=== PATIENT | female | born 1955 | race African-American/Black ===

== ENCOUNTER 2018-08-22 03:16 | Inpatient (IN) | payer MEDICARE, MEDICAID ==
[~2018-08-22] VITALS: Ht 162.6 cm; Wt 43.8 kg
[2018-08-22] VITALS (23 sets, daily range): BP systolic 89–139; BP diastolic 39–78; BMI 18.1
[2018-08-22] MEDS ORDERED: NORVASC5 MG PO (03:24)
[2018-08-22] MEDS ORDERED: GABAPENTIN100 MG PO (03:24)
[2018-08-22] MEDS ORDERED: METHOTREXATE2.5 MG PO (03:24)
[2018-08-22] MEDS ORDERED: PREDNISONE5 MG PO (03:25)
[2018-08-22] MEDS ORDERED: HYDROCODON-ACE1 EA10 PO (03:25)
[2018-08-22] MEDS ORDERED: PROTONIX40 MG PO (03:25)
[2018-08-22] MEDS ORDERED: TRAZODONE HCL150 MG PO (03:26)
[2018-08-22] MEDS ORDERED: ZANAFLEX2 M1 PO (03:26)
[2018-08-22 04:27] LABS: CKMB 16.1 U/L (0.0-3.6); CREATINE KINASE 1087 UL (21-215); PRO BNP 4009 pg/mL (0-125)
[2018-08-22 04:29] LABS: TROPONIN-I 0.268 ng/mL (0.000-0.060)
--- NOTE | 2018-08-22 05:00 | NUR ---
RECEIVED PT FROM ER. PT ATTACHED TO MONITORS. MONITORS WORKING PROPERLY. PT IS INTUBATED AND SEDATED ON THE VENT. NO SIGNS OF ACUTE DISTRESS. WILL CONTINUE TO MONITOR.
--- NOTE | 2018-08-22 07:00 | NUR ---
RECIEVED BEDSIDE REPORT ON PATIENT, PATIENT SEDATED ON VENT, RESTING QUIETLY, VSS. VENT SETTINGS: TV 450; A/C 20; FIO2% - 40%, SPO2 - 96%, PEEP 5. ON PROPOFOL GTT INFUSING AT 50 MCG/KG/MIN (14.9 CC/HR). REYES CATH IN PLACE WITH 1100 IN CLEAR YELLOW URINE OUTPUT. PATIENT TURNED AND REPOSITIONED IN BED. HEAD TO TOE ASSESSMENT COMPLETED.
--- NOTE | 2018-08-22 08:23 | NUR ---
PER DR. ROSS, DIPROVAN GTT SHUT OFF TO WEAN FROM VENT AND POSSIBLE EXTUBATION.
--- NOTE | 2018-08-22 09:03 | NUR ---
PATIENT SEDATED RESTING QUIELTY, SEDATION VACATION ONGOING. TURNED AND REPOSITIONED IN BED.
--- NOTE | 2018-08-22 11:00 | NUR ---
REASSESSMENT COMPLETED. PATIENT RESTING QUIELTY, AROUSED BY VOICE, NOT FOLLOWING COMMANDS AT PRESENT. VSS. EASILY DRIFTS BACK TO SLEEP. SCDS PLACED AND MEDS GIVEN PER SEP. UOP 950 CC CLEAR YELLOW. WILL CONTINUE TO MONITOR. TURNED AND REPOSITIONED IN BED.
--- NOTE | 2018-08-22 13:05 | NUR ---
PATIENT RESTING QUIETLY, VSS. AROUSES TO VOICE AND STIMULATION, NOT FOLLOWING COMMANDS AND IMMEDIATELY DRIFTS BACK TO SLEEP. SEDATION CONTINUED TO BE HELD. TURNED AND REPOSITIONED IN BED.
--- NOTE | 2018-08-22 14:26 | NUR ---
PATIENT RESTING QUIETLY, WITH EYES CLOSED, EASILY AROUSED BY VOICE, VSS. WILL FOCUS BRIEFLY AND THEN FALL BACK ASLEEP. TURNED AND REPOSITIONED IN BED.
--- NOTE | 2018-08-22 14:57 | NUR ---
SPOKE TO DR. ROSS REGARDING PATIENTS UOP [id number]. NO ORDERS RECEIVED.
--- NOTE | 2018-08-22 15:28 | NUR ---
REASSESSMENT COMPLETED, VSS. PATIENT TURNED AND REPOSITIONED IN BED. SPOKE TO DR. ROSS CONCERNING HIGH UOP, BMP, PHOS AND MAG ORDERED FOR 1600. WILL CONTINUE TO MONITOR.
--- NOTE | 2018-08-22 16:57 | NUR ---
PATIENT RESTING QUIETLY, VSS. TURNED AND REPOSITIONED IN BED.
--- NOTE | 2018-08-22 17:01 | NUR ---
LAB AT ROOM TO DRAW BMP, PHOS AND MAG.
[2018-08-22 17:49] LABS: ANION GAP 8.9 mmol/L (8-16); CREATININE - SERUM 1.4 mg/dL (0.6-1.3); MAGNESIUM - SERUM 1.9 mg/dL (1.8-2.4); PHOSPHOROUS 3.8 mg/dL (2.5-4.9); POTASSIUM - SERUM 3.6 mmol/L (3.5-5.1)
[2018-08-22 17:54] LABS: CARBON DIOXIDE 40.7 mmol/L (21.0-32.0)
--- NOTE | 2018-08-22 17:58 | NUR ---
DR ROSS NOTIFIED OF CRITICAL CO2 OF 40.7. CO2 LEVEL CONFIRMED, NO ORDERS RECIEVED.
--- NOTE | 2018-08-22 19:14 | NUR ---
REPORT RECEIVED, CARE ASSUMED. INITIAL ASSESSMENT COMPLETED, SEE FLOWSHEET. NO SIGNS OF ACUTE DISTRESS. WILL CONTINUE TO MONITOR.
--- NOTE | 2018-08-22 21:14 | NUR ---
PT IS RESTING IN BED INTUBATED AND ON THE VENT. PT WILL AWAKEN AND FOLLOW BASIC COMMANDS. NO SIGNS OF ACUTE CHANGES. NO SIGNS OF ACUTE DISTRESS. WILL CONTINUE TO MONITOR.
--- NOTE | 2018-08-22 23:15 | NUR ---
REASSESSMENT COMPLETED, SEE FLOWSHEET. PT IS RESTING IN BED ON THE VENT. NO ACUTE CHANGES NOTED. NO SIGNS OF ACUTE DISTRESS. WILL CONTINUE TO MONITOR.
[2018-08-23] VITALS (23 sets, daily range): BP systolic 95–161; BP diastolic 52–78
--- NOTE | 2018-08-23 01:15 | NUR ---
PT IS IN BED INTUBATED. PT IS CALM AT THIS TIME. NO SIGNS OF ACUTE DISTRESS. WILL CONTINUE TO MONITOR.
--- NOTE | 2018-08-23 03:15 | NUR ---
REASSESSMENT COMPLETED, SEE FLOWSHEET. NO ACUTE CHANGES NOTED. NO SIGNS OF ACUTE DISTRESS. WILL CONTINUE TO MONITOR.
[2018-08-23 04:12] LABS: HEMATOCRIT 35.6 % (36.0-48.0); HEMOGLOBIN 10.8 g/dL (12-16); MCH 23.2 pg (26.0-34.0); MCHC 30.3 g/dL (31.0-37.0); MCV 76.6 fL (80.0-100.0); MEAN PLATELET VOLUME 10.5 fL (7.4-10.4); PLATELET COUNT 180 10x3/uL (130-400); RBC 4.65 10x6/uL (4.00-5.40); WBC 11.9 10x3/uL (4.8-10.8)
[2018-08-23 04:29] LABS: ALBUMIN 2.8 g/dL (3.4-5.0); BILIRUBIN - TOTAL 1.62 mg/dL (0.2-1.3); CALCIUM 7.8 mg/dL (8.5-10.1); CREATININE - SERUM 1.1 mg/dL (0.6-1.3); PROTEIN - SERUM 6.4 g/dL (6.4-8.2)
[2018-08-23 04:30] LABS: POTASSIUM - SERUM 2.7 mmol/L (3.5-5.1)
[2018-08-23 04:31] LABS: ANION GAP 9.1 mmol/L (8-16); CARBON DIOXIDE 43.6 mmol/L (21.0-32.0)
[2018-08-23 04:39] LABS: LYMPHOCYTES 5 % (15-50); MONOCYTES 5 % (2-11); NEUTROPHILS 88 % (40-80); PLATELET ESTIMATE NORMAL
--- NOTE | 2018-08-23 05:15 | NUR ---
PT IS IN BED WITH EYES CLOSED INTUBATED ON THE VENT. NO SIGNS OF ACUTE DISTRESS. WILL CONTINUE TO MONITOR.
--- NOTE | 2018-08-23 09:39 | NUR ---
CPAP TRIALS. DR ROSS HERE ON ROUNDS THIS AM.
--- NOTE | 2018-08-23 12:01 | NUR ---
CPAP TRIALS PER RT. PT DID BECOME APNIC. OGT PLACED AND REC'D ORDERS FOR TF. PLACEMENT VERIFIED VIA ASCULTATION. TF BEGAN. IV LEAKINGL WRIST. PIV PLACED IN BUE.
--- NOTE | 2018-08-23 17:31 | NUR ---
PT RESTING QUIETLY, AWAKENS EASILY. VSS. TURNED AND MOUTH CARE COMPLETE.
--- NOTE | 2018-08-23 19:04 | NUR ---
REPORT RECEIVED, CARE ASSUMED. INITIAL ASSESSMENT COMPLETED, SEE FLOWSHEET. PT IS RESTING IN BED INTUBATED AND ON THE VENT. PT AWAKENS EASILY AND WILL FOLLOW BASIC COMMANDS. PT SHOWS NO SIGNS OF ACUTE DISTRESS. WILL CONTINUE TO MONITOR.
--- NOTE | 2018-08-23 21:04 | NUR ---
PT IS RESTING IN BED. REPOSITIONED FOR COMFORT. NO SIGNS OF ACUTE DISTRESS. WILL CONTINUE TO MONITOR.
--- NOTE | 2018-08-23 23:04 | NUR ---
REASSESSMENT COMPLETED, SEE FLOWSHEET. NO SIGNS OF ACUTE DISTRESS. WILL CONTINUE TO MONITOR.
[2018-08-24] VITALS (24 sets, daily range): BP systolic 88–159; BP diastolic 51–78; Ht 162.6 cm; Wt 43.8 kg
--- NOTE | 2018-08-24 01:04 | NUR ---
PT IS RESTING IN BED ON THE VENT. NO ACUTE CHANGES NOTED. NO SIGNS OF ACUTE DISTRESS. WILL CONTINUE TO MONITOR.
--- NOTE | 2018-08-24 03:05 | NUR ---
REASSESSMENT COMPLETED, SEE FLOWSHEET. NO ACUTE CHANGES NOTED. PT WAS INCONTINENT OF A SMALL LIQUID BM. PADS CHANGES, PT CLEANED. REYES CARE PERFORMED. NO SIGNS OF ACUTE DISTRESS. WILL CONTINUE TO MONITOR.
[2018-08-24 04:16] LABS: BASOPHILS 0.4 % (0-2); EOSINOPHILS 0.1 % (0-7); HEMATOCRIT 37.5 % (36.0-48.0); HEMOGLOBIN 11.2 g/dL (12-16); IMMATURE GRANULOCYTES 0.4 % (0-5); LYMPHOCYTES 7.1 % (15-50); MCHC 29.9 g/dL (31.0-37.0); MCV 77.2 fL (80.0-100.0); MEAN PLATELET VOLUME 10.4 fL (7.4-10.4); MONOCYTES 9.2 % (2-11); NEUTROPHILS 82.8 % (40-80); PLATELET COUNT 161 10x3/uL (130-400); RBC 4.86 10x6/uL (4.00-5.40); RDW 20.5 % (11.5-14.5)
[2018-08-24 04:17] LABS: WBC 8.3 10x3/uL (4.8-10.8)
[2018-08-24 04:38] LABS: ALBUMIN 2.6 g/dL (3.4-5.0); BILIRUBIN - TOTAL 1.39 mg/dL (0.2-1.3); CREATININE - SERUM 1.1 mg/dL (0.6-1.3); PROTEIN - SERUM 6.2 g/dL (6.4-8.2)
[2018-08-24 04:44] LABS: POTASSIUM - SERUM 2.9 mmol/L (3.5-5.1)
[2018-08-24 04:45] LABS: ANION GAP 6.1 mmol/L (8-16); CARBON DIOXIDE 46.8 mmol/L (21.0-32.0)
--- NOTE | 2018-08-24 05:05 | NUR ---
PT IS RESTING IN BED ON THE VENT. PT REPOSITIONED SELF. NO SIGNS OF ACUTE DISTRESS. WILL CONTINUE TO MONITOR.
--- NOTE | 2018-08-24 07:00 | NUR ---
REPORT RECEIVED ASSESMENT COMPLETED. PT AWAKE NODS HEAD APPROPRIATELY TO QUESTIONS FOLLOWS COMMANDS AND IS CALM AND COOPERATIVE. ORALLY INTUBATED ETT SECURE 7.5 AT 24 LIP. SEE RESP FLOWSHEETS FOR VENT SETTINGS. ON CM READING NSR WITHOUT ECTOPY ALARMS ON AND AUDIBLE. PT VERY THIN SKIN INTACT NO BREAKDOWN NOTED. BED IN LOW POSITION SIDE RAILS UP CALL LIGHT IN REACH. PT ABLE TO HELP TURN SELF
--- NOTE | 2018-08-24 11:00 | NUR ---
REASSESSMENT MADE PT ON CPAP DOING WELL NO OTHER CHANGES
--- NOTE | 2018-08-24 12:30 | NUR ---
SHABBIR RT PLACES PT BACK ON VENT PER LEE ORDER
--- NOTE | 2018-08-24 13:00 | NUR ---
DR GREGG AND DR HOWARD ROUNDING AND DISCUSSING PTS CARE. PT CONTINUES ON CPAP WITH O2 SATS 96%. HEART RATE AND BLOOD PRESSURE STABLE DR GREGG ORDERED TO INCREASE TUBE FLUSH FROM 20 CC HOUR TO 50CC HOUR CONTINUE THE PULMOCARE AT 30CC HOUR PER DIETARY RECOMMENDATION FOR CALORIC INTAKE
--- NOTE | 2018-08-24 15:00 | NUR ---
REASSESSMENT NO CHANGES BACK ON VENT
--- NOTE | 2018-08-24 18:00 | NUR ---
MODERATE LIQUID STOOL BROWN PARTIAL BED BATH. SKIN INTACT PT ABLE TO HELP TURN
--- NOTE | 2018-08-24 19:30 | NUR ---
REC'D TO CARE, REGULATOR INSPECTOR PER FLOWSHEET. [facility]. OPENS EYES TO VOICE. SAIDA TO COMMANDS. VSS. REYES CATH PATENT AND DRAINING CLEAR, SANDRA URINE. PIV X 3 NOTED, SL'D, NO REDNESS OR SWELLING AT SITES. PT WILL REACH FOR ETT, B/L SOFT WRIST RESTRAINTS ON. ALARMS ON AND C/L IN REACH.
--- NOTE | 2018-08-24 21:00 | NUR ---
NO VISITORS. VSS. CONT Q2H TURNING AND ORAL CARE.
--- NOTE | 2018-08-24 23:30 | NUR ---
REASSESSMENT PER FLOWSHEET, NO ACUTE CHANGES. PT COOPERATIVE, ABLE TO CONVEY NEEDS. ORAL CARE PROVIDED, PT ASSISTS WITH TURNING AND ACTIVE ROM. ALARMS ON .
[2018-08-25] VITALS (26 sets, daily range): BP systolic 85–134; BP diastolic 51–77
--- NOTE | 2018-08-25 01:00 | NUR ---
REPOSITIONED UP IN BED TO R SIDE. ORAL CARE DONE. PILLOW BETWEEN KNEES. PT BACK TO REST EASILY.
--- NOTE | 2018-08-25 03:35 | NUR ---
REASSESSMENT PER FLOWSHEET. NO ACUTE CHANGES. VSS.
[2018-08-25 04:20] LABS: BASOPHILS 0.3 % (0-2); EOSINOPHILS 0.3 % (0-7); HEMOGLOBIN 10.7 g/dL (12-16); IMMATURE GRANULOCYTES 0.2 % (0-5); LYMPHOCYTES 18.1 % (15-50); MCHC 29.7 g/dL (31.0-37.0); MCV 77.3 fL (80.0-100.0); MONOCYTES 10.5 % (2-11); NEUTROPHILS 70.6 % (40-80); RBC 4.66 10x6/uL (4.00-5.40); WBC 6.4 10x3/uL (4.8-10.8)
[2018-08-25 04:21] LABS: PLATELET COUNT 128 10x3/uL (130-400)
[2018-08-25 04:48] LABS: ALBUMIN 2.5 g/dL (3.4-5.0); BILIRUBIN - TOTAL 1.45 mg/dL (0.2-1.3); CREATININE - SERUM 0.9 mg/dL (0.6-1.3); MAGNESIUM - SERUM 1.6 mg/dL (1.8-2.4); PHOSPHOROUS 1.8 mg/dL (2.5-4.9); POTASSIUM - SERUM 3.7 mmol/L (3.5-5.1); PROTEIN - SERUM 5.7 g/dL (6.4-8.2); THYROID STIMULATING HORMONE 4.1 uIU/mL (0.36-3.74)
[2018-08-25 04:50] LABS: ANION GAP 5.1 mmol/L (8-16); CARBON DIOXIDE 44.6 mmol/L (21.0-32.0)
--- NOTE | 2018-08-25 08:55 | NUR ---
0700 AM ASSESMENT IS COMPLETE SEE FLOW SHEET FOR FINDINGS.. PT IS AWAKE AND APPROPRIATE IN HER RESPONSES.. ORALLY INTUBATED AND ON VENT SEDATION OFF.. VENT SETTING ARE SIMV.. OGT WITH TUBE FEEDING INFUSING.. 0800 PT ON CPAP TRIAL PER RT.. CONTINUES CALM AND WITHOUT SEDATION..
--- NOTE | 2018-08-25 10:09 | NUR ---
REPORT RECEVIED FROM SATURNINO MAURO RN. PT REPOSITIONED. PT ABLE TO COMMUNICATE BY SHAKING HEAD YES AND NO. DENIES PAIN. NO S/SX OF DISTRESS/DISCOMFORT NOTED. PT CURRENTLY CPAP'ING AND TOLERATING WELL. CALL LIGHT IN REACH. WILL CONT POC.
--- NOTE | 2018-08-25 10:15 | NUR ---
DR HOWARD PAGED DUE TO METABOLIC ACIDOSIS DUE TO THE ABG'S THE AM. PT VSS AT THIS TIME. DR HOWARD STATED HE WILL LOOK AT THE PTS LABS ONCE HE GETS IN ICU.
--- NOTE | 2018-08-25 10:53 | NUR ---
TUBE FEEDING BAG CHANGED. PULMOCARE STARTED PER ORDERS. NO RESIDUAL NOTED. ASCULATED PLACEMENT.
--- NOTE | 2018-08-25 10:59 | NUR ---
ABG OBTAINED VIA RT PER ORDRES. CO2 LVLS INCREASED. RT CHANGED THE PT TO SIMV.
--- NOTE | 2018-08-25 11:06 | NUR ---
DR HOWARD IN THE UNIT. ORDERS FOR D51/2NS AT 50ML/H. SEE MAR
--- NOTE | 2018-08-25 11:14 | NUR ---
WAS TOLD BY DR HOWARD TO GO AHEAD AND TREAT ELECTROLYTE PER ORDERS AND TO KEEP THE PT LIGHTLY SEDATED.
--- NOTE | 2018-08-25 11:17 | NUR ---
WAS TOLD BY DR HOWARD TO ADVANCE NGT.
--- NOTE | 2018-08-25 11:47 | NUR ---
ASKED THE PT IF SHE WAS COMFORTABLE. SHE SHOOK HER HEAD NO. REPOSITIONED FOR COMFORT. ASKED THE PT IF SHE WOULD LIKE MEDICATION TO MAKE HER MORE COMFORTABLE AND SHE SHOOK HER HEAD YES. DR LEE LOMELI FOR LIGHT SEDATION. DEION INITIATED WELL D51/2NS
--- NOTE | 2018-08-25 11:57 | NUR ---
OGT INSERTED ABOUT 4-5 CM. PLACMENT CHECKED. <10 CC OF RESIDUAL. ASCULTATED.
--- NOTE | 2018-08-25 12:23 | NUR ---
PT CALM AND COOPERATIVE. RESTING WITH HER EYES CLOSED WITH NO S/SX OF DISTRESS/DISCOMFORT NOTED. VSS AT THIS TIME. WILL CONT POC.
--- NOTE | 2018-08-25 16:04 | NUR ---
1430 PT CONTINUES WITH OUT CHANGES.. REMAINS ON THE DIPRIVAN ORALLY INTUBATED ON VENT.. 1500 NO CHNAGES.. 1600 I AND O DONE
--- NOTE | 2018-08-25 17:40 | NUR ---
1700 FAMILY MEMBER CALLED WITH PASSWORD UPDATE GIVEN.. PT REPOSITIONED..
--- NOTE | 2018-08-25 18:08 | MORECARE ---
CASE MANAGEMENT DISCHARGE SUMMARY PATIENT: FARHAT LONG UNIT: [id number] ADM DATE: 08/22/18 AGE: 62 : 57 SEX: F ROOM/BED: D.2311 AUTHOR: BALDOMERO FINLEY PHYSICIAN: REFERRING PHYSICIAN: CHRISTIANO JONES MD DATE OF SERVICE: 08/25/18 Discharge Plan Patient Name: [facility]ARHAT LONG [facility] [facility] 1955 Planned Disposition: Anticipated Discharge Date: Discharge Date: Expected LOS: Initial Reviewer: [email or web address] Initial Review Date: 08/25/2018 Generated: 08/25/18 7:08 pm DCPIA - Discharge Planning Initial Assessment Updated by [email or web address]: Arleth Coyle on 08/25/18 6:08 pm * Is the patient Alert and Oriented? Yes * How many steps to enter\exit or inside your home? * PCP Jerry - [place] ?? * [facility] - [place] * Preadmission Environment Home with Family * ADLs Independent * Other Equipment possibly cane and 02?? * List name and contact numbers for known caregivers / representatives who currently or will assist patient after discharge: Anson Long - brother- [phone] * Verbal permission to speak to the caregivers and representatives has been obtained from the patient. N/A * Community resources currently utilized None * Additional services required to return to the preadmission environment? No * Can the patient safely return to the preadmission environment? Yes * Has this patient been hospitalized within the prior 30 days at any hospital? No Patient Name: FARHAT LONG Page [id number] at 1808 All edits/amendments must be made on the electronic document DICTATION DATE: 08/25/181807 WAREHOUSE PULLER: KELY 08/25/181807 RPT#: [id number] DC DATE: STATUS: ADM IN [facility] [address] [place] [address] END OF REPORT
--- NOTE | 2018-08-25 18:18 | MORECARE ---
CASE MANAGEMENT DISCHARGE SUMMARY PATIENT: FARHAT LONG UNIT: [id number] ADM DATE: 08/22/18 AGE: 62 : 57 SEX: F ROOM/BED: D.2311 AUTHOR: TUSHARDOC PHYSICIAN: REFERRING PHYSICIAN: CHRISTIANO JONES MD DATE OF SERVICE: 08/25/18 Discharge Plan Patient Name: FARHAT LONG Facility: [facility]:[place] : 1955 Planned Disposition: Anticipated Discharge Date: Discharge Date: Expected LOS: Initial Reviewer: [email or web address] Initial Review Date: 08/25/2018 Generated: 08/25/18 7:18 pm Comments DCP- Discharge Planning Updated by [email or web address]: Arleth Coyle on 08/25/18 5:[address] Patient Name: FARHAT LONG Admission Status: ER Accout number: [id number] Admission Date: 08-22-2018 : 1955 Admission Diagnosis:ACUTE RESPIRATORY FAILURE WITH HYPOXIA Attending: CHRISTIANO JONES Current LOS: 3 Anticipated DC Date: Planned Disposition: Primary Insurance: [facility] MEDICARE SOLUT[employer] Discharge Planning Comments: CM attempted to meet with patient regarding discharge planning/ needs. Patient is currently sedated on ventilator. CM contacted Anson Long (brother) [phone]. Anson stated that the patient lived with a cousin. He stated that he thought patient might have a cane and home 02 but denies any HH services. Family uncertain of discharge disposition or needs at this time. CM will continue to follow and assist as needed with discharge planning / needs. Receptionist Airline Lounge: Arleth Coyle DCPIA - Discharge Planning Initial Assessment Updated by [email or web address]: Arleth Coyle on 08/25/18 6:08 pm * Is the patient Alert and Oriented? Yes * How many steps to enter\exit or inside your home? * PCP Jerry - Hope ?? * [facility]acy [facility] - [place] * Preadmission Environment Home with Family * ADLs Independent * Other Equipment possibly cane and 02?? * List name and contact numbers for known caregivers / representatives who currently or will assist patient after discharge: Anson Long - brother- [phone] * Verbal permission to speak to the caregivers and representatives has been obtained from the patient. N/A * Community resources currently utilized None * Additional services required to return to the preadmission environment? No * Can the patient safely return to the preadmission environment? Yes * Has this patient been hospitalized within the prior 30 days at any hospital? No Last DP export: 08/25/18 5:08 p Patient Name: FARHAT LONG Page [id number] at 1818 All edits/amendments must be made on the electronic document DICTATION DATE: 08/25/181816 SUPERCHARGER MECHANIC: KELY 08/25/181816 RPT#: [id number] DC DATE: STATUS: ADM IN [facility] [address] [place] [address] END OF REPORT
--- NOTE | 2018-08-25 19:30 | NUR ---
PT SEDATED AND INTUBATED, DOES OPEN EYES, FOLLOW COMMANDS, AND NODS TO YES/NO QUESTIONS. LUNG SOUNDS DIMINISHED/CLEAR, SPO2 97 ON 40% FIO2. ORAL CARE PROVIDED AT THIS TIME. S1S2 HEARD, PERIPHERAL PULSES PRESENT. ABD FLAT AND NON TENDER, BOWEL SOUNDS ACTIVE IN ALL QUADRANT. OGT SECURE AND POSITION VERIFIED, NO RESIDUAL AT THIS TIME. REYES CATH INTACT, REYES CARE PROVIDED. PT REPOSITIONED WITH PROMINENCES BRIDGED. VSS, NO S/S OF PAIN OR DISTRESS. ROOM VISIBLE FROM NURSES STATION. CPOC.
--- NOTE | 2018-08-25 21:30 | NUR ---
PT REPOSITIONED WITH PROMINENCES BRIDGED, LINEN CHANGE PROVIDED. ORAL CARE PROVIDED. VSS, NO S/S OF PAIN OR DISTRESS. CPOC.
--- NOTE | 2018-08-25 22:00 | NUR ---
NO VISITORS FOR THE VISITATION.
--- NOTE | 2018-08-25 23:30 | NUR ---
REASSESSMENT COMPLETE, NO CHANGES AT THIS TIME. ORAL CARE PROVIDED. PT REPOSITIONED WITH PROMINENCES BRIDGED. VSS, NO S/S OF PAIN OR ACUTE DISTRESS AT THIS TIME. ROOM VISIBLE FROM NURSES STATION. CPOC.
[2018-08-26] VITALS (25 sets, daily range): BP systolic 86–130; BP diastolic 52–108
--- NOTE | 2018-08-26 01:30 | NUR ---
ORAL CARE PROVIDED. PT REPOSITIONED WITH A PARTIAL LINEN CHANGE. VSS, NO S/S OF PAIN OR ACUTE DISTRESS, PT FOLLOWS COMMANDS. ROOM VISIBLE FROM NURSES STATION. CPOC.
--- NOTE | 2018-08-26 03:45 | NUR ---
REASSESSMENT COMPLETE, NO CHANGES AT THIS TIME. PT REPOSITIONED WITH PROMINENCES BRIDGED. ORAL CARE PROVIDED AT THIS TIME. VSS, NO S/S OF PAIN OR DISTRESS. ROOM VISIBLE FROM NURSES STATION. CPOC.
[2018-08-26 04:38] LABS: BASOPHILS 0.3 % (0-2); EOSINOPHILS 1.2 % (0-7); HEMATOCRIT 34.9 % (36.0-48.0); HEMOGLOBIN 10.1 g/dL (12-16); IMMATURE GRANULOCYTES 0.1 % (0-5); LYMPHOCYTES 19.9 % (15-50); MCH 22.9 pg (26.0-34.0); MCHC 28.9 g/dL (31.0-37.0); MCV 79.1 fL (80.0-100.0); MONOCYTES 11.7 % (2-11); NEUTROPHILS 66.8 % (40-80); PLATELET COUNT 126 10x3/uL (130-400); RBC 4.41 10x6/uL (4.00-5.40); RDW 21.3 % (11.5-14.5); WBC 6.8 10x3/uL (4.8-10.8)
[2018-08-26 04:57] LABS: ALBUMIN 2.3 g/dL (3.4-5.0); ALKALINE PHOSPHATASE 93 U/L (46-116); BILIRUBIN - TOTAL 1.16 mg/dL (0.2-1.3); CALCIUM 7.9 mg/dL (8.5-10.1); CARBON DIOXIDE 39.9 mmol/L (21.0-32.0); CHLORIDE - SERUM 103 mmol/L (98-107); CREATININE - SERUM 0.8 mg/dL (0.6-1.3); POTASSIUM - SERUM 3.7 mmol/L (3.5-5.1); PROTEIN - SERUM 5.8 g/dL (6.4-8.2); SODIUM 144 mmol/L (136-145); T4 THYROXINE 5.3 ug/dL (4.7-13.3); eGFR NON AFRICAN AMERICAN 77 mL/min (90-120)
[2018-08-26 05:02] LABS: ALT (SGPT) 510 U/L (10-68); CALC OSMOLALITY 295 mosm/kg (275-300); GLUCOSE 202 mg/dL (74-106); PHOSPHOROUS 3.3 mg/dL (2.5-4.9); UREA NITROGEN 22 mg/dL (7-18)
--- NOTE | 2018-08-26 07:15 | NUR ---
REPORT RECIEVED, SHIFT ASSESSMENT COMPLETE, PT IS SEDATED ON VENT, FOLLOWS COMMANDS, ALL PPP, VSS, WILL CON'T TO MONITOR
--- NOTE | 2018-08-26 09:00 | NUR ---
NO VISITORS AT THIS TIME, WILL CON'T TO MONITOR
--- NOTE | 2018-08-26 09:15 | NUR ---
NUTRITION F/U PT REMAINS ON VENT, DIPRIVAN @ 2.5 CC/HR. PULMOCARE @ 30 CC/HR WITH 20 CC H2O FLUSH Q HOUR. D51/2 NS AT 50 CC/HR. WILL CONTINUE TO MONITOR PT PROGRESS. RD FOLLOWING
--- NOTE | 2018-08-26 11:16 | NUR ---
DR. GREGG AT BEDSIDE, UPDATE GIVEN
--- NOTE | 2018-08-26 13:15 | NUR ---
REPOSITIONED FOR COMFORT, ORAL CARE PROVIDED, WILL CON'T TO MONITOR
--- NOTE | 2018-08-26 15:15 | NUR ---
REASSESSMENT COMPLETE, NO CHANGES NOTED, VSS, WILL CON'T TO MONITOR
--- NOTE | 2018-08-26 17:26 | NUR ---
NO NEEDS NOTED, WILL CON'T TO MONITOR
--- NOTE | 2018-08-26 19:30 | NUR ---
PT SEDATED, FOLLOWS COMMANDS, NODS HEAD TO YES/NO QUESTIONS. LUNG SOUNDS CLEAR/DIMINISHED. ORAL CARE COMPLETED AT THIS TIME, MARINA SECRETIONS SUCTIONED. S1S2 HEARD, PERIPHERAL PULSES PRESENT. BOWEL SOUNDS ACTIVE IN ALL QUADRANTS. REYES CATH INTACT WITH SANDRA URINE TO BEDSIDE DRAINAGE, REYES CATH CARE PROVIDED AT THIS TIME. PT REPOSITIONED WITH PROMINENCES BRIDGED. VSS, NO S/S OF PAIN OR ACUTE DISTRESS NOTED AT THIS TIME. ROOM VISIBLE FROM NURSES STATION. CPOC.
--- NOTE | 2018-08-26 20:50 | NUR ---
HS MEDS GIVEN, TF BAG REPLACED. PT REPOSITIONED WITH PROMINENCES BRIDGED. ORAL CARE PROVIDED, MARINA SECRETIONS PRESENT. VSS, NO S/S OF PAIN OR DISTRESS NOTED AT THIS TIME. ROOM VISIBLE FROM NURSES STATION. CPOC.
--- NOTE | 2018-08-26 23:30 | NUR ---
REASSESSMENT COMPLETE, NO NEW CHANGES AT THIS TIME. ORAL CARE PROVIDED. PT REPOSITIONED WITH PROMINENCES BRIDGED. VSS, NO S/S OF PAIN OR DISTRESS. CPOC.
[2018-08-27] VITALS (24 sets, daily range): BP systolic 88–139; BP diastolic 54–80
--- NOTE | 2018-08-27 03:30 | NUR ---
REASESSMENT COMPLETE, NO NEW CHANGES AT THIS TIME. ORAL CARE PROVIDED. PT REPOSITIONED WITH PROMINENCES BRIDGED. VSS, CPOC.
[2018-08-27 04:46] LABS: BASOPHILS 0.2 % (0-2); EOSINOPHILS 2.2 % (0-7); HEMATOCRIT 30.5 % (36.0-48.0); HEMOGLOBIN 8.7 g/dL (12-16); IMMATURE GRANULOCYTES 0.3 % (0-5); LYMPHOCYTES 13.6 % (15-50); MCH 23.4 pg (26.0-34.0); MCHC 28.5 g/dL (31.0-37.0); MONOCYTES 11.1 % (2-11); NEUTROPHILS 72.6 % (40-80); PLATELET COUNT 104 10x3/uL (130-400); RBC 3.72 10x6/uL (4.00-5.40); WBC 6.4 10x3/uL (4.8-10.8)
--- NOTE | 2018-08-27 05:30 | NUR ---
PT REPOSITIONED AND WITH COMPLETE LINEN CHANGE, PROMINENCES BRIDGED. ORAL CARE PROVIDED. VSS, NO S/S OF ACUTE DISTRESS. CPOC.
[2018-08-27 05:37] LABS: ALBUMIN 2.4 g/dL (3.4-5.0); ALKALINE PHOSPHATASE 88 U/L (46-116); ALT (SGPT) 398 U/L (10-68); BILIRUBIN - TOTAL 0.92 mg/dL (0.2-1.3); CALCIUM 7.9 mg/dL (8.5-10.1); CHLORIDE - SERUM 105 mmol/L (98-107); CREATININE - SERUM 0.7 mg/dL (0.6-1.3); MAGNESIUM - SERUM 2.1 mg/dL (1.8-2.4); PHOSPHOROUS 3.5 mg/dL (2.5-4.9); PROTEIN - SERUM 5.9 g/dL (6.4-8.2); SODIUM 143 mmol/L (136-145); eGFR NON AFRICAN AMERICAN 90 mL/min (90-120)
[2018-08-27 05:40] LABS: BASOPHILS 0.1 % (0-2); EOSINOPHILS 1.9 % (0-7); HEMATOCRIT 35.8 % (36.0-48.0); IMMATURE GRANULOCYTES 0.3 % (0-5); MCHC 29.3 g/dL (31.0-37.0); MONOCYTES 9.7 % (2-11); PLATELET COUNT 120 10x3/uL (130-400); RDW 21.5 % (11.5-14.5); WBC 7.5 10x3/uL (4.8-10.8)
[2018-08-27 05:41] LABS: HEMOGLOBIN 10.5 g/dL (12-16); MCV 78.5 fL (80.0-100.0); RBC 4.56 10x6/uL (4.00-5.40)
[2018-08-27 05:44] LABS: CALC OSMOLALITY 285 mosm/kg (275-300); CARBON DIOXIDE 29.3 mmol/L (21.0-32.0); GLUCOSE 100 mg/dL (74-106); POTASSIUM - SERUM 4.3 mmol/L (3.5-5.1); UREA NITROGEN 15 mg/dL (7-18)
--- NOTE | 2018-08-27 07:00 | NUR ---
SHIFT ASSESSMENT COMPLETED, PT CARE ASSUMED, MONITORS ON AND WORKING, VITALS STABLE, PT SEDATED, FOLLOWS COMMANDS. REYES STAT LOCKED IN PLACE, NO SIGNS/SYMPTOMS OF PAIN OR DISCOMFORT NOTED AT THIS TIME. SEE FLOW SHEET FOR FURTHER DETAILS. WILL CONTINUE TO OBSERVE.
--- NOTE | 2018-08-27 09:00 | NUR ---
PT TURNED AND REPOSITIONED FOR COMFORT, PT TOLERATING SEDATION VACATION WELL, SPOKE WITH RT ABOUT CPAP TRIALS. MONITORS ON AND WORKING, VITALS STABLE. PT AWAKE AND ALERT, NO SIGNS/SYMPTOMS OF PAIN OR DISCOMFORT NOTED AT THIS TIME. WILL CONTINUE TO OBSERVE.
--- NOTE | 2018-08-27 11:00 | NUR ---
PT TURNED AND REPOSITIONED, MONITORS ON AND WORKING, VITALS STABLE. NO SIGNS/SYMPTOMS OF PAIN OR DISCOMFORT NOTED AT THIS TIME, WILL CONTINUE TO OBSERVE.
--- NOTE | 2018-08-27 13:00 | NUR ---
PT TURNED AND REPOSITIONED FOR COMFORT, PT SEDATED ON VENT. MONITORS ON AND WORKING, VITALS STABLE. NO SIGNS/SYMPTOMS OF PAIN OR DISCOMFORT NOTED AT THIS TIME. WILL CONTINUE TO OBSERVE.
--- NOTE | 2018-08-27 15:00 | NUR ---
PT TURNED AND REPOSITIONED. MONITORS ON AND WORKING. VITALS STABLE, NO SIGNS/SYMPTOMS OF PAIN OR DISCOMFORT NOTED. WILL CONTINUE TO OBSERVE.
--- NOTE | 2018-08-27 17:00 | NUR ---
PT TURNED AND REPSOTIONED, MONITORS ON AND WORKING. VITALS STABLE, PT RESTING CALMLY ON VENT, SEDATED. NO SIGNS/SYMPTOMS OF PAIN OR DISCOMFORT NOTED AT THIS TIME. WILL CONTINUE TO OBSERVE.
--- NOTE | 2018-08-27 23:00 | NUR ---
OGT ADVANCED 4 CM
[2018-08-28] VITALS (24 sets, daily range): BP systolic 101–147; BP diastolic 58–97
--- NOTE | 2018-08-28 07:00 | NUR ---
SHIFT ASSESSMENT COMPLETED, PT CARE ASSUMED. MONITORS ON AND WORKING.VITALS STABLE, NO SIGNS/SYMPTOMS OF PAIN OR DISCOMFORT NOTED, SEE FLOW SHEET FOR FURTHER DETAILS. WILL CONTINUE TO OBSERVE.
--- NOTE | 2018-08-28 10:03 | NUR ---
Nutrition follow-up: Pt intubated, sedated Pulmocare infusing @ 30 ml/hr Labs reviewed CPAP trials Pt now assessed with severe malnutrition of acute illness R/T respiratory failure AEB ~10% weight loss x 7 daysm (106# on admit-now 93#) reduced lead consultant strength. Pt tolerating TF at this time. RDN following.
--- NOTE | 2018-08-28 11:00 | NUR ---
PT TURNED AND REPOSITIONED, MONITORS ON AND WORKING. VITALS STABLE. SEE FLOW SHEET FOR FURTHER CHANGES, WILL CONTINUE TO OBSERVE.
--- NOTE | 2018-08-28 13:00 | NUR ---
PT TURNED AND REPOSITIONED FOR COMFORT, NO SIGNS/SYMPTOMS OF PAIN OR DISCOMFORT NOTED AT THIS TIME, WILL CONTINUE TO OBSERVE.
--- NOTE | 2018-08-28 15:00 | NUR ---
PT CLEANED FROM BM, MONITORS ON AND WORKING, VITALS STABLE, SEE FLOW SHEET FOR FURTHER DETAILS.
--- NOTE | 2018-08-28 17:00 | NUR ---
PT TURNED AND REPOSITIONED, NO SIGNS/SYMPTOMS OF PAIN OR DISCOMFORT, MONITORS ON AND WORKING, VITALS STABLE. WILL CONTINUE TO OBSERVE.
[2018-08-29] VITALS (25 sets, daily range): BP systolic 95–169; BP diastolic 57–92
[2018-08-29 03:43] LABS: BASOPHILS 0.2 % (0-2); EOSINOPHILS 0.8 % (0-7); HEMATOCRIT 34.1 % (36.0-48.0); HEMOGLOBIN 10.2 g/dL (12-16); IMMATURE GRANULOCYTES 0.4 % (0-5); LYMPHOCYTES 11.3 % (15-50); MCH 23.1 pg (26.0-34.0); MCHC 29.9 g/dL (31.0-37.0); MCV 77.1 fL (80.0-100.0); MONOCYTES 13.3 % (2-11); PLATELET COUNT 128 10x3/uL (130-400); RBC 4.42 10x6/uL (4.00-5.40); RDW 22.2 % (11.5-14.5)
[2018-08-29 03:45] LABS: WBC 10.1 10x3/uL (4.8-10.8)
[2018-08-29 03:49] LABS: CALC OSMOLALITY 273 mosm/kg (275-300); CALCIUM 8.3 mg/dL (8.5-10.1); CARBON DIOXIDE 25.5 mmol/L (21.0-32.0); CHLORIDE - SERUM 104 mmol/L (98-107); CREATININE - SERUM 0.6 mg/dL (0.6-1.3); GLUCOSE 125 mg/dL (74-106); POTASSIUM - SERUM 4.4 mmol/L (3.5-5.1); SODIUM 137 mmol/L (136-145); eGFR NON AFRICAN AMERICAN > 90 mL/min (90-120)
[2018-08-29 03:50] LABS: PHOSPHOROUS 2.2 mg/dL (2.5-4.9); UREA NITROGEN 11 mg/dL (7-18)
--- NOTE | 2018-08-29 07:00 | NUR ---
awakes to verbal stimuli skin warm and dry. ett secure to vent bilateral lung sounds equal. og tube infusing with pulmocare at 30 ml hour. alvarado cath patent with dark mark urine . left forearm iv infusing with d51/2ns at 50 ml hour. diprivan at 50 mcg/kg/min. patient resting comfortably on vent. monitor sr-st.
--- NOTE | 2018-08-29 09:00 | NUR ---
suction velazquez sputum from ett moderate amount. large amount of clear secretions from mouth. alvarado cath draining clear yellow urine. diprivan at 25 mcg/kg/min. no distress. no skin breakdown noted
--- NOTE | 2018-08-29 11:00 | NUR ---
dr. raya here nora turned down to 5 mcg/kg/min for cpap trail. large brown still some solid and liquid.
--- NOTE | 2018-08-29 13:00 | NUR ---
tube feeding increased to [address] raya orders. repositioned. tolerates well.
--- NOTE | 2018-08-29 13:28 | NUR ---
CALLED [phone] SISTER OF PATIENT NUMBER HAS BEEN CHANGED OR DISCONNECTED CALLED [phone] PHONE NUMBER OF BROTHER OF PATIENT THIS NUMBER HAS BEEN CHANGED OR DISCONNECT. CALLED [phone] TALKED WITH HOPPER COUSIN OF PATIENT SHE STATED PATIENT ONLY ABD SURGERY WAS A GALLBLADDER SURGER. PER PATIENT RECORDS FROM [facility] IN 03/2018 PATIENT HAD EXPLORATORY INCISION WITH CHOLECYSTECTOMY.
--- NOTE | 2018-08-29 15:00 | NUR ---
when on cpap trails, consistently trying to reach for ett. someone has to sit with her and repositioned her to keep her away from it. resp in 30's while on cpap. no major resp distress. heart rate increased and blood pressure increased. placed back simv. sedation increased to 45 mcg/kg/min of diprivan
--- NOTE | 2018-08-29 15:27 | NUR ---
talked on phone with hopper cousin of patient only contact phone available to make family aware of possible trach and peg on friday.
--- NOTE | 2018-08-29 16:00 | NUR ---
SON HERE. UPDATE GIVEN. IN FORMED OF POSSIBLE TRACH AND PEG ON FRIDAY. DIPRIVAN AT 40 MCG/KG/MIN. WEANING TO MINIMAL SEDATION REQUIRED TO MAINTAIN LINES
--- NOTE | 2018-08-29 17:00 | NUR ---
REPOSITIONED. DIPRIVAN DECREASED TO 35 MCG/KG/MIN
--- NOTE | 2018-08-29 18:00 | NUR ---
PATIENT RESTING COMFORTABLY DIPRIVAN DECREASED TO 30 MCG/KG/MIN. SUCTIONED MARINA SPUTUM FROM ETT. LARGE AMOUNT OF CLEAR SECRETIONS ORALLY
[2018-08-30] VITALS (25 sets, daily range): BP systolic 86–133; BP diastolic 50–79
[2018-08-30 04:00] LABS: BASOPHILS 0.1 % (0-2); EOSINOPHILS 1.3 % (0-7); HEMATOCRIT 32.4 % (36.0-48.0); HEMOGLOBIN 9.7 g/dL (12-16); IMMATURE GRANULOCYTES 0.8 % (0-5); LYMPHOCYTES 15.5 % (15-50); MCH 23.2 pg (26.0-34.0); MCHC 29.9 g/dL (31.0-37.0); MCV 77.3 fL (80.0-100.0); MONOCYTES 15.1 % (2-11); NEUTROPHILS 67.2 % (40-80); PLATELET COUNT 153 10x3/uL (130-400); RBC 4.19 10x6/uL (4.00-5.40); RDW 22.9 % (11.5-14.5); WBC 7.9 10x3/uL (4.8-10.8)
[2018-08-30 04:24] LABS: ALBUMIN 2.1 g/dL (3.4-5.0); ALKALINE PHOSPHATASE 113 U/L (46-116); ALT (SGPT) 179 U/L (10-68); BILIRUBIN - TOTAL 0.69 mg/dL (0.2-1.3); CALC OSMOLALITY 276 mosm/kg (275-300); CALCIUM 8.1 mg/dL (8.5-10.1); CARBON DIOXIDE 25.4 mmol/L (21.0-32.0); CHLORIDE - SERUM 108 mmol/L (98-107); CREATININE - SERUM 0.5 mg/dL (0.6-1.3); GLUCOSE 97 mg/dL (74-106); PROTEIN - SERUM 6.2 g/dL (6.4-8.2); SODIUM 139 mmol/L (136-145); UREA NITROGEN 10 mg/dL (7-18); eGFR NON AFRICAN AMERICAN > 90 mL/min (90-120)
[2018-08-30 04:25] LABS: PHOSPHOROUS 3.5 mg/dL (2.5-4.9)
[2018-08-30 04:26] LABS: POTASSIUM - SERUM 4.2 mmol/L (3.5-5.1)
--- NOTE | 2018-08-30 07:00 | NUR ---
AWAKES EASILY TO VERBAL STIMULI SKIN WARM AND DRY. BILATERAL LUNG SOUNDS EQUAL AND FAIRLY CLEAR. OG INFUSING WITH PULMOCARE AT 40 ML HOUR WITH 20 ML HOUR FLUSH. NO DISTRESS. LARGE AMOUNT CLEAR SECRETIONS FROM MOUTH. SMALL AMOUNT OF ETT SECRETION. REYES CATH PATENT DRAINING CLEAR YELLOW URINE. MONITOR SR. HEAD OF BED ELEVATED 30 DEGREES. LEFT FOREARM IV INFUSING WITH DIPRIVAN AT 30 MCG/KG/MIN DECREASED TO 10 MEQ/KG/MIN FOR CPAP TRAILS. D51/2NS AT 50 ML HOUR. IV WITHOUT REDNESS OR SWELLING.
--- NOTE | 2018-08-30 09:00 | NUR ---
REPOSITIONED. NO DISTRESS. SUCTIONED LARGE AMOUNT CLEAR SECRETIONS FROM MOUTH. ALERT AND COOPERATIVE.
--- NOTE | 2018-08-30 11:00 | NUR ---
REPOSITIONED. NO CHANGE ON CPAP TRAIL TOLERATING FAIR RIGHT NOW
--- NOTE | 2018-08-30 12:00 | NUR ---
PATIENT INDICATING SHE IS SHORT OF BREATH. RESP THERAPY NOTIFIED.
--- NOTE | 2018-08-30 13:00 | NUR ---
REPOSITIONED. SMALL SOFT BROWN STOOL. TOLERATES WELL. ASSIST WITH TURNING SELF
--- NOTE | 2018-08-30 15:00 | NUR ---
REPOSITIONED. NO DISTRESS. AWAKE ALERT HELPS TURN SELF. ETT SECURE TO VENT. REYES PATENT. IV LEFT FOREARM WITHOUT REDNESS OR SWELLING
--- NOTE | 2018-08-30 17:00 | NUR ---
REPOSITIONED. SUCTION ETT. AND ORALLY LARGE AMOUNT CLEAR SECRETIONS ORALLY.
--- NOTE | 2018-08-30 19:05 | NUR ---
NO CHANGES RESTING COMFORTABLY ON DIPIRIVAN
--- NOTE | 2018-08-30 19:30 | NUR ---
REPORT RECEIVED, ASSESSMENT COMPLETE PER FLOW SHEET, ON VENT PER ORDERS, PT APEARS TO BE IN NO ACUTE DISTRESS, ABLE TO COMMUNICATE NEEDS, MEDS INFUSING PER MAR, REPOSITIONED FOR COMFORT, SUCTIONING AND ORAL CARE COMPLETE, VSS, WILL CONTINUE TO ASSESS
--- NOTE | 2018-08-30 21:00 | NUR ---
PT RESTING WITH NO S/S OF ACUTE DISTRESS, REPOSITIONED FOR COMFORT, ORAL CARE COMPLETE, VSS
--- NOTE | 2018-08-30 23:00 | NUR ---
REASSESSMENT COMPLETE PER FLOW SHEET, NO ACUTE DISTRESS OR CHANGES NOTED, REYES CARE COMPLETE, REPOSITIONED FOR COMFORT, RESTRAINTS REMOVED AND SKIN ASSESSED WITH NO BREAKDOWN NOTED, VSS, WILL CONTINUE TO MOONITOR
[2018-08-31] VITALS (22 sets, daily range): BP systolic 84–154; BP diastolic 44–95
--- NOTE | 2018-08-31 00:50 | NUR ---
RT AT BEDSIDE TO CHANGE VENT SETTINGS PER ABG'S, PT APEARS TO BE IN NO ACUTE DISTRESS, PT MOVES HEAD "NO" WHEN ASKED IF IN PAIN, REPOSITIONED FOR COMFORT, VSS, WILL CONTINUE TOP ASSESS
--- NOTE | 2018-08-31 01:00 | NUR ---
PT DENIES PAIN WITH HEAD MOVEMENT, REPOSITIONED FOR COMFORT, VSS
--- NOTE | 2018-08-31 03:00 | NUR ---
REASSESSMENT COMPLETE PER FLOW SHEET, NO ACUTE CHANGE NOTED, REPOSITIONED UP IN BED FOR COMFORT, SUCTIONED, ORAL CARE COMPLETE, VSS, MEDS INFUSING PER MAR, NO S/S OF DISTRESS NOTED, OGT TUBE PLACEMENT VERIFIED, WILL CONTINUE TO MONITOR
[2018-08-31 04:24] LABS: BASOPHILS 0.2 % (0-2); EOSINOPHILS 1.4 % (0-7); HEMOGLOBIN 9.2 g/dL (12-16); IMMATURE GRANULOCYTES 0.2 % (0-5); LYMPHOCYTES 18.3 % (15-50); MCH 23.2 pg (26.0-34.0); MCHC 29.7 g/dL (31.0-37.0); MCV 78.1 fL (80.0-100.0); MONOCYTES 13.2 % (2-11); NEUTROPHILS 66.7 % (40-80); PLATELET COUNT 131 10x3/uL (130-400); RBC 3.97 10x6/uL (4.00-5.40)
[2018-08-31 04:26] LABS: WBC 5.9 10x3/uL (4.8-10.8)
[2018-08-31 04:28] LABS: APTT 34.8 SECONDS (22.8-39.4); INR 1.06 (0.85-1.17); PROTIME 13.3 SECONDS (11.6-15.0)
[2018-08-31 04:35] LABS: ALKALINE PHOSPHATASE 109 U/L (46-116); ALT (SGPT) 141 U/L (10-68); BILIRUBIN - TOTAL 0.54 mg/dL (0.2-1.3); CALC OSMOLALITY 277 mosm/kg (275-300); CALCIUM 8.2 mg/dL (8.5-10.1); CARBON DIOXIDE 24.2 mmol/L (21.0-32.0); CHLORIDE - SERUM 109 mmol/L (98-107); CREATININE - SERUM 0.5 mg/dL (0.6-1.3); GLUCOSE 92 mg/dL (74-106); POTASSIUM - SERUM 4.7 mmol/L (3.5-5.1); PROTEIN - SERUM 5.9 g/dL (6.4-8.2); SODIUM 140 mmol/L (136-145); UREA NITROGEN 10 mg/dL (7-18); eGFR NON AFRICAN AMERICAN > 90 mL/min (90-120)
--- NOTE | 2018-08-31 07:00 | NUR ---
BED SIDE SHIFT COMPLETE. ORAL CARE ADM.
--- NOTE | 2018-08-31 07:15 | NUR ---
REPORT RECIEVED. ASSESSMENT COMPLETE PER FLOW SHEET. VSS. ORAL CARE ADM. REPOSITIONED ON R SIDE. NEEDS MET.
--- NOTE | 2018-08-31 09:01 | NUR ---
DR ROSS AT BEDSIDE. GIVEN UPDATE. NEW ORDERS RECEIEVED.
--- NOTE | 2018-08-31 09:34 | NUR ---
NUTRITION F/U CHART REVIEWED. CONTINUES DIPRIVAN @ 2.5 CC/HR, D51/2 NS AT 50 CC/HR AND PULMOCARE AT 40 CC/HR. COULD NOT FIND ORDER TO INCREASE FROM PRIOR GOAL RATE 30 CC/HR. WILL ENTER NURSING MESSAGE TO MAKE CURRENT GOAL RATE 35 CC/HR. NOTE POSSIBLE TRACH AND PEG. RD FOLLOWING
--- NOTE | 2018-08-31 10:10 | NUR ---
RESP AT BEDSIDE. NO NEW CHANGES
--- NOTE | 2018-08-31 11:14 | NUR ---
REASSESSMENT COMPMLETE PER FLOW SHEET. VSS. NO NEW CHANGES WILL CFONTINUE TO MONITOR
--- NOTE | 2018-08-31 13:00 | NUR ---
DR OJEDA AT BEDSIDE. GIVEN UDPATE NO NEW CHANGES WILL CONTINUE TO MONITOR
--- NOTE | 2018-08-31 14:20 | NUR ---
VENT ALARMING ORAL ENODTRACH CARE ADM. WILL CONTINUE OT MONITOR
--- NOTE | 2018-08-31 15:50 | NUR ---
REASSESSMENT COMPLETE PER FLOW SHEET. VSS. NO NEW CHANGES PT RESTING COMFORTABLY WILL CONTINUE TO MONITOR
--- NOTE | 2018-08-31 17:00 | NUR ---
ORAL ENODTRACH CARE ADM. COMPLETE BB LINEN CHANGE ADM. NO NEW FINDINGS. WILL CONTINUE TO MONITOR
[2018-09-01] VITALS (23 sets, daily range): BP systolic 117–157; BP diastolic 62–101
--- NOTE | 2018-09-01 04:39 | NUR ---
PATIENT C/O HEADACHE. PATIENT HAS NO PAIN MEDS ORDERED AND IS NPO FOR TRACH AND PEG THIS AM. COOL CLOTH OBTAINED AND APPLIED TO FOREHEAD; PATIENT NODS THAT IT IS HELPING.
[2018-09-01 04:56] LABS: BASOPHILS 0.4 % (0-2); HEMATOCRIT 29.5 % (36.0-48.0); IMMATURE GRANULOCYTES 0.2 % (0-5); LYMPHOCYTES 21.7 % (15-50); MCH 23.6 pg (26.0-34.0); MCHC 30.5 g/dL (31.0-37.0); MCV 77.2 fL (80.0-100.0); MONOCYTES 13.5 % (2-11); NEUTROPHILS 63.2 % (40-80); PLATELET COUNT 144 10x3/uL (130-400); RBC 3.82 10x6/uL (4.00-5.40); RDW 23.1 % (11.5-14.5)
[2018-09-01 05:01] LABS: ALKALINE PHOSPHATASE 93 U/L (46-116); ALT (SGPT) 123 U/L (10-68); BILIRUBIN - TOTAL 0.96 mg/dL (0.2-1.3); CALC OSMOLALITY 275 mosm/kg (275-300); CARBON DIOXIDE 24.2 mmol/L (21.0-32.0); CHLORIDE - SERUM 108 mmol/L (98-107); CREATININE - SERUM 0.6 mg/dL (0.6-1.3); GLUCOSE 78 mg/dL (74-106); POTASSIUM - SERUM 4.1 mmol/L (3.5-5.1); SODIUM 140 mmol/L (136-145); UREA NITROGEN 8 mg/dL (7-18); eGFR NON AFRICAN AMERICAN > 90 mL/min (90-120)
--- NOTE | 2018-09-01 07:15 | NUR ---
PT ALERT. VENT IN PLACE. IV IN LEFT FOREARM WITH D5 1/2 INFUSING AT 50ML/HR. SCDS IN PLACE. ORAL CARE AND SUCTIONING DONE. CONSENTS FOR TRACH AND PEG OBTAINED. PT NPO. REYES CATH IN PLACE. GI LAB CALLED WITH UPDATE. NEW ORDERS RECEIVED. SIDE RAILS UP X2. CALL LIGHT IN REACH. WILL CONTINUE TO MONITOR.
--- NOTE | 2018-09-01 09:29 | NUR ---
DR. ROSS BEDSIDE WITH RESPIRATORY. NEW ORDERS RECEIVED. WILL MONITOR.
--- NOTE | 2018-09-01 11:00 | NUR ---
REASSESSMENT COMPLETE PER FLOW SHEET. VSS. PT TOLERATING CPAP AT THIS TIME. DR ROSS AT BEDSIDE GIVEN UPDATE.
--- NOTE | 2018-09-01 11:44 | NUR ---
PT EXTUBATED WITHOUT COMPLICATIONS TO BIPAP 40% 10/5 O2 SAT 97% TOLERATING WELL WILL CONTNIUE TO MONITOR
--- NOTE | 2018-09-01 13:20 | NUR ---
LARGE BM NOTED COMPLETE BB LINEN CHANGE ADM.
--- NOTE | 2018-09-01 15:13 | NUR ---
REASSESSMENT COMPLETE PER FLOW SHEET. VSS. NO NEW CHANGES WILL CONTINUE TO MONITOR
[2018-09-02] VITALS (11 sets, daily range): BP systolic 95–146; BP diastolic 61–97
[2018-09-02 04:56] LABS: BASOPHILS 0.4 % (0-2); EOSINOPHILS 0 % (0-7); HEMATOCRIT 33.1 % (36.0-48.0); HEMOGLOBIN 9.9 g/dL (12-16); IMMATURE GRANULOCYTES 0.2 % (0-5); MCH 23.5 pg (26.0-34.0); MCHC 29.9 g/dL (31.0-37.0); MCV 78.6 fL (80.0-100.0); MONOCYTES 14.1 % (2-11); NEUTROPHILS 63.3 % (40-80); RBC 4.21 10x6/uL (4.00-5.40); WBC 5.2 10x3/uL (4.8-10.8)
[2018-09-02 05:01] LABS: PLATELET COUNT 176 10x3/uL (130-400)
[2018-09-02 05:11] LABS: ALBUMIN 2.1 g/dL (3.4-5.0); ALKALINE PHOSPHATASE 101 U/L (46-116); ALT (SGPT) 117 U/L (10-68); BILIRUBIN - TOTAL 0.54 mg/dL (0.2-1.3); CALC OSMOLALITY 281 mosm/kg (275-300); CALCIUM 8.2 mg/dL (8.5-10.1); CARBON DIOXIDE 28.7 mmol/L (21.0-32.0); CHLORIDE - SERUM 108 mmol/L (98-107); CREATININE - SERUM 0.5 mg/dL (0.6-1.3); GLUCOSE 80 mg/dL (74-106); POTASSIUM - SERUM 3.8 mmol/L (3.5-5.1); PROTEIN - SERUM 6.5 g/dL (6.4-8.2); SODIUM 143 mmol/L (136-145); UREA NITROGEN 6 mg/dL (7-18); eGFR NON AFRICAN AMERICAN > 90 mL/min (90-120)
--- NOTE | 2018-09-02 07:15 | NUR ---
REPORT RECIEVED. ASSESSMENT COMPLETE PER FLOW SHEET. VSS. NO NEW CHANGES PT RESTING COMFORTABLY WILL CONTINUE TO MONITOR
--- NOTE | 2018-09-02 09:24 | NUR ---
NUTRITION F/U PT SLEEPING. TOLERATING REG [facility] SOFT DIET WITH ~50% INTAKE BREAKFAST. WILL ADD ENSURE TO MEALS. RD FOLLOWING
--- NOTE | 2018-09-02 09:25 | NUR ---
ATE 75% BREAKFAST
--- NOTE | 2018-09-02 11:15 | NUR ---
REASSESSMENT COMPLETE PER FLOW SHEET. VSS. NON EW CHANGES WILL CONTINUE TO MONITOR
--- NOTE | 2018-09-02 13:03 | NUR ---
ATE 100% LUNCH
--- NOTE | 2018-09-02 14:30 | NUR ---
HOSPICE AT BEDSIDE TO SPEAK WITH FAMILY
--- NOTE | 2018-09-02 15:45 | NUR ---
PT SLEEPING COMFORTABLY VSS NO NEW CHANGES DENIES NEEDS WILL CONTINUE TO MONITOR
--- NOTE | 2018-09-02 16:18 | NUR ---
REPORT CALLED TO RADHA PT TO 2222 VIA WHEELCHAIR
--- NOTE | 2018-09-02 18:26 | NUR ---
SPOKE WITH LEIGH VELÁZQUEZ ABOUT "PT CO OF NAUSEA." ZOFRAN 4MG IV Q6PRN. NO S/S OF ACUTE DISTRESS. CL IN PLACE.
--- NOTE | 2018-09-02 20:00 | NUR ---
ALERT AND ORIENTIATED SITTING UP IN BED C/O OF STILL HAVING NAUSEA AND VOMITING, COOL CLOTH GIVEN HAD RECIEVED ZOFRAN ABOUT 2 HRS AGO, INSTRUCTED WAS ORDERED EVERY 6 HRS, IV INFUSING WITHOUT DIFFICULTY, CALL LIGHT IN REACH, O2 IN USE VIA NASAL CANULA
[2018-09-03] VITALS (7 sets, daily range): BP systolic 86–164; BP diastolic 49–86
[2018-09-03 05:49] LABS: BASOPHILS 0.4 % (0-2); HEMATOCRIT 38.4 % (36.0-48.0); HEMOGLOBIN 11.6 g/dL (12-16); IMMATURE GRANULOCYTES 0.1 % (0-5); LYMPHOCYTES 20.1 % (15-50); MCH 23.6 pg (26.0-34.0); MCHC 30.2 g/dL (31.0-37.0); MCV 78.2 fL (80.0-100.0); MONOCYTES 6.6 % (2-11); NEUTROPHILS 71.8 % (40-80); RBC 4.91 10x6/uL (4.00-5.40); RDW 22.8 % (11.5-14.5)
[2018-09-03 06:16] LABS: PLATELET COUNT 226 10x3/uL (130-400); WBC 7.3 10x3/uL (4.8-10.8)
[2018-09-03 06:20] LABS: CALC OSMOLALITY 265 mosm/kg (275-300); CALCIUM 8.4 mg/dL (8.5-10.1); CARBON DIOXIDE 31.2 mmol/L (21.0-32.0); CHLORIDE - SERUM 97 mmol/L (98-107); CREATININE - SERUM 0.5 mg/dL (0.6-1.3); GLUCOSE 87 mg/dL (74-106); MAGNESIUM - SERUM 1.5 mg/dL (1.8-2.4); POTASSIUM - SERUM 3.5 mmol/L (3.5-5.1); SODIUM 135 mmol/L (136-145); eGFR NON AFRICAN AMERICAN > 90 mL/min (90-120)
[2018-09-03 06:39] LABS: UREA NITROGEN 3 mg/dL (7-18)
--- NOTE | 2018-09-03 07:30 | NUR ---
PATIENT RESTING IN BED WITH EYES CLOSED, CL IN REACH
--- NOTE | 2018-09-03 15:42 | MORECARE ---
CASE MANAGEMENT DISCHARGE SUMMARY PATIENT: FARHAT LONG UNIT: [id number] ADM DATE: 08/22/18 AGE: 62 : 57 SEX: F ROOM/BED: D.2222 AUTHOR: TUSHAR,DOC PHYSICIAN: REFERRING PHYSICIAN: CHRISTIANO JONES MD DATE OF SERVICE: 09/03/18 Discharge Plan Patient Name: FARHAT LONG Facility: [facility]:[place] : 1955 Planned Disposition: Anticipated Discharge Date: Discharge Date: Expected LOS: Initial Reviewer: [id number] Initial Review Date: 08/25/2018 Generated: 09/03/18 4:41 pm Comments DCP- Discharge Planning Updated by [id number]: Iram Estrada on 09/03/18 2:[address] CM met with patient, she is alone in the room. States she lives with her cousin. States her PCP is Drew Edwards. States she wears oxygen at all times at 2L NC. States she also has a nebulizer. States her DME company is [employer]. States she uses a walking stick for ambulation, otherwise is independent with all ADL's and AIDL's. States she does use the [email or web address] bus for transportation. She agrees to long term therapy if needed for rehab and GE[facility]ANNY for [facility] signed in [place]. CM will continue to follow and assist with discharge planning/needs. DCP- Discharge Planning Updated by [id number]: Arleth Coyle on 08/25/18 5:[address] Patient Name: FARHAT LONG Admission Status: ER Accout number: [id number] Admission Date: 08-22-2018 : 1955 Admission Diagnosis:ACUTE RESPIRATORY FAILURE WITH HYPOXIA Attending: CHRISTIANO JONES Current LOS: 3 Anticipated DC Date: Planned Disposition: Primary Insurance: [facility] MEDICARE SOLUTIONS Discharge Planning Comments: CM attempted to meet with patient regarding discharge planning/ needs. Patient is currently sedated on ventilator. CM contacted Anson Long (brother) [phone]. Anson stated that the patient lived with a cousin. He stated that he thought patient might have a cane and home 02 but denies any services. Family uncertain of discharge disposition or needs at this time. CM will continue to follow and assist as needed with discharge planning / needs. Supervisor Home Energy Consultant: Arleth Coyle DCPIA - Discharge Planning Initial Assessment Updated by [email or web address]: Arleth Coyle on 08/25/18 6:08 pm * Is the patient Alert and Oriented? Yes * How many steps to enter\exit or inside your home? * PCP Jerry - [place] ?? * [facility] [place] * Preadmission Environment Home with Family * ADLs Independent * Other Equipment possibly cane and 02?? * List name and contact numbers for known caregivers / representatives who currently or will assist patient after discharge: Anson Long - brother- [phone] * Verbal permission to speak to the caregivers and representatives has been obtained from the patient. N/A * Community resources currently utilized None * Additional services required to return to the preadmission environment? No * Can the patient safely return to the preadmission environment? Yes * Has this patient been hospitalized within the prior 30 days at any hospital? No Last DP export: 08/25/18 5:18 p Patient Name: FARHAT LONG Page 64857 at 1542 All edits/amendments must be made on the electronic document DICTATION DATE: 09/03/181540 RN RECOVERY: KELY 09/03/181540 RPT#: [id number] DC DATE: STATUS: ADM IN [facility] [address] [place] [address] END OF REPORT
--- NOTE | 2018-09-03 20:00 | NUR ---
ALERT RESTING IN BED RESP UNLABORED O2 IN USE VIA N/C, REPORTS FEELING MUCH BETTER TODAY REQUESTING ENSURE, REYES TO GRAVITY DRAINAGE IV INFUSING WITHOUT DIFFICULTY CALL [facility]
[2018-09-04] VITALS: BP 89/48
[2018-09-04 04:00] VITALS: BP 111/66
[2018-09-04 07:06] LABS: BASOPHILS 0.4 % (0-2); EOSINOPHILS 0.4 % (0-7); HEMATOCRIT 35.6 % (36.0-48.0); HEMOGLOBIN 10.5 g/dL (12-16); IMMATURE GRANULOCYTES 0.2 % (0-5); LYMPHOCYTES 31.7 % (15-50); MCH 23.3 pg (26.0-34.0); MCHC 29.5 g/dL (31.0-37.0); MCV 79.1 fL (80.0-100.0); MONOCYTES 9.2 % (2-11); NEUTROPHILS 58.1 % (40-80); PLATELET COUNT 231 10x3/uL (130-400); RDW 22.6 % (11.5-14.5); WBC 5.6 10x3/uL (4.8-10.8)
[2018-09-04 07:20] LABS: CALCIUM 8.2 mg/dL (8.5-10.1); CARBON DIOXIDE 31.7 mmol/L (21.0-32.0); CHLORIDE - SERUM 101 mmol/L (98-107); GLUCOSE 71 mg/dL (74-106); MAGNESIUM - SERUM 1.5 mg/dL (1.8-2.4); SODIUM 138 mmol/L (136-145)
[2018-09-04 07:22] LABS: CALC OSMOLALITY 272 mosm/kg (275-300); CREATININE - SERUM 0.7 mg/dL (0.6-1.3); UREA NITROGEN 11 mg/dL (7-18)
[2018-09-04 07:23] LABS: eGFR NON AFRICAN AMERICAN 90 mL/min (90-120)
[2018-09-04 08:40] VITALS: BP 96/63
--- NOTE | 2018-09-04 10:07 | MORECARE ---
CASE MANAGEMENT DISCHARGE SUMMARY PATIENT: FARHAT LONG UNIT: [id number] ADM DATE: 08/22/18 AGE: 62 : 57 SEX: F ROOM/BED: D.2222 AUTHOR: TUSHARDOC PHYSICIAN: REFERRING PHYSICIAN: CHRISTIANO JONES MD DATE OF SERVICE: 09/04/18 Discharge Plan Patient Name: FARHAT LONG Facility: [facility]:[place] : 1955 Planned Disposition: Anticipated Discharge Date: Discharge Date: Expected LOS: Initial Reviewer: [email or web address] Initial Review Date: 08/25/2018 Generated: 09/04/18 11:07 am Comments DCP- Discharge Planning Updated by [email or web address]: Iram Estrada on 09/03/18 2:[address] CM met with patient, she is alone in the room. States she lives with her cousin. States her PCP is Drew Edwards. States she wears oxygen at all times at 2L NC. States she also has a nebulizer. States her DME company is [employer]. States she uses a walking stick for ambulation, otherwise is independent with all ADL's and AIDL's. States she does use the [employer] bus for transportation. She agrees to [facility] therapy if needed for rehab and [facility]NY for [facility] signed in [place]. CM will continue to follow and assist with discharge planning/needs. DCP- Discharge Planning Updated by [id number]: Arleth Coyle on 08/25/18 5:[address] Patient Name: FRAHAT LONG Admission Status: ER Accout number: [id number] Admission Date: 08-22-2018 : 1955 Admission Diagnosis:ACUTE RESPIRATORY FAILURE WITH HYPOXIA Attending: CHRISTIANO JONES Current LOS: 3 Anticipated DC Date: Planned Disposition: Primary Insurance: [facility] MEDICARE SOLUTIONS Discharge Planning Comments: CM attempted to meet with patient regarding discharge planning/ needs. Patient is currently sedated on ventilator. CM contacted Anson Long (brother) [phone]. Anson stated that the patient lived with a cousin. He stated that he thought patient might have a cane and home 02 but denies any services. Family uncertain of discharge disposition or needs at this time. CM will continue to follow and assist as needed with discharge planning / needs. Wire Technician: Arleth Coyle DCPIA - Discharge Planning Initial Assessment Updated by [id number]: Arleth Coyle on 08/25/18 6:08 pm * Is the patient Alert and Oriented? Yes * How many steps to enter\exit or inside your home? * PCP Jerry - [place] ?? * [facility] - [place] * Preadmission Environment Home with Family * ADLs Independent * Other Equipment possibly cane and 02?? * List name and contact numbers for known caregivers / representatives who currently or will assist patient after discharge: Anson Long - brother- [phone] * Verbal permission to speak to the caregivers and representatives has been obtained from the patient. N/A * Community resources currently utilized None * Additional services required to return to the preadmission environment? No * Can the patient safely return to the preadmission environment? Yes * Has this patient been hospitalized within the prior 30 days at any hospital? No External Providers External Provider: [facility] Next Contact Date: Service Request Date: Service Type: Resolution: Reviewer: Comments: Last DP export: 09/03/18 2:41 p Patient Name: FARHAT LONG Page 25385 at 1007 All edits/amendments must be made on the electronic document DICTATION DATE: 09/04/18 1007 LACE AND TEXTILES RESTORER: DM 09/04/18 1007 RPT#: [id number] DC DATE: STATUS: ADM IN [facility] [address] [place] [address] END OF REPORT
--- NOTE | 2018-09-04 10:15 | MORECARE ---
CASE MANAGEMENT DISCHARGE SUMMARY PATIENT: FARHAT LONG UNIT: [id number] ADM DATE: 08/22/18 AGE: 62 : 57 SEX: F ROOM/BED: D.2222 AUTHOR: TUSHAR,DOC PHYSICIAN: REFERRING PHYSICIAN: CHRISTIANO JONES MD DATE OF SERVICE: 09/04/18 Discharge Plan Patient Name: FARHAT LONG Facility: [facility]:[place] : 1955 Planned Disposition: Anticipated Discharge Date: Discharge Date: Expected LOS: Initial Reviewer: [email or web address] Initial Review Date: 08/25/2018 Generated: 09/04/18 11:15 am Comments DCP- Discharge Planning Updated by [email or web address]: Iram Estrada on 09/04/18 9:[address] I called Ivania at [facility] in [place] and referral given. She is a managed Medicare and will need preauthorization for admission to skilled facility. Clinical faxed. CM will continue to follow and assist with discharge planning/needs. [facility] DCP- Discharge Planning Updated by [email or web address]: Iram Estrada on 09/03/18 2:[address] CM met with patient, she is alone in the room. States she lives with her cousin. States her PCP is Drew Edwards. States she wears oxygen at all times at 2L NC. States she also has a nebulizer. States her [employer] company is [email or web address]. States she uses a walking stick for ambulation, otherwise is independent with all ADL's and AIDL's. States she does use the [employer] bus for transportation. She agrees to long term therapy if needed for rehab and GEOVANNY for [facility] signed in [place]. CM will continue to follow and assist with discharge planning/needs. DCP- Discharge Planning Updated by [id number]: Arleth Coyle on 08/25/18 5:[address] Patient Name: FARHAT LONG Admission Status: ER Accout number: [id number] Admission Date: 08-22-2018 : 1955 Admission Diagnosis:ACUTE RESPIRATORY FAILURE WITH HYPOXIA Attending: CHRISTIANO JONES Current LOS: 3 Anticipated DC Date: Planned Disposition: Primary Insurance: [facility] MEDICARE SOLUTIONS Discharge Planning Comments: CM attempted to meet with patient regarding discharge planning/ needs. Patient is currently sedated on ventilator. CM contacted Anson Long (brother) [phone]. Anson stated that the patient lived with a cousin. He stated that he thought patient might have a cane and home 02 but denies any services. Family uncertain of discharge disposition or needs at this time. CM will continue to follow and assist as needed with discharge planning / needs. Sports Internship: Arleth Coyle DCPIA - Discharge Planning Initial Assessment Updated by [id number]: Arleth Coyle on 08/25/18 6:08 pm * Is the patient Alert and Oriented? Yes * How many steps to enter\exit or inside your home? * PCP Jerry - [place] ?? * [facility] - [place] * Preadmission Environment Home with Family * ADLs Independent * Other Equipment possibly cane and 02?? * List name and contact numbers for known caregivers / representatives who currently or will assist patient after discharge: Anson Long - brother- [phone] * Verbal permission to speak to the caregivers and representatives has been obtained from the patient. N/A * Community resources currently utilized None * Additional services required to return to the preadmission environment? No * Can the patient safely return to the preadmission environment? Yes * Has this patient been hospitalized within the prior 30 days at any hospital? No Last DP export: 09/04/18 9:07 a Patient Name: FARHAT LONG Page 10658 at 1015 All edits/amendments must be made on the electronic document DICTATION DATE: 09/04/18 1014 SCHEDULING SPECIALIST: KELY 09/04/18 1014 RPT#: [id number] DC DATE: STATUS: ADM IN [facility] [address] [place] [address] END OF REPORT
[2018-09-04 12:50] VITALS: BP 127/74
[2018-09-04] MEDS ORDERED: PREDNISONE10 MG PO (15:10)
[2018-09-04] MEDS ORDERED: ROBITUSSIN DM 110 ML PO (15:10)
[2018-09-04] MEDS ORDERED: PULMICORT0.5 MG/21 UPD (15:10)
[2018-09-04] MEDS ORDERED: OMNICEF300 MG PO (15:11)
--- NOTE | 2018-09-04 15:47 | MORECARE ---
CASE MANAGEMENT DISCHARGE SUMMARY PATIENT: FARHAT LONG UNIT: [id number] ADM DATE: 08/22/18 AGE: 62 : 57 SEX: F ROOM/BED: D.2222 AUTHOR: TUSHAR,DOC PHYSICIAN: REFERRING PHYSICIAN: CHRISTIANO JONES MD DATE OF SERVICE: 09/04/18 Discharge Plan Patient Name: FARHAT LONG Facility: [facility]:[place] : 1955 Planned Disposition: Anticipated Discharge Date: Discharge Date: Expected LOS: Initial Reviewer: [email or web address] Initial Review Date: 08/25/2018 Generated: 09/04/18 4:47 pm Comments DCP- Discharge Planning Updated by [email or web address]: Iram Estrada on 09/04/18 9:[address] I called Ivania at [facility] in [place] and referral given. She is a managed Medicare and will need preauthorization for admission to skilled facility. Clinical faxed. CM will continue to follow and assist with discharge planning/needs. [facility] DCP- Discharge Planning Updated by [id number]: Iram Estrada on 09/03/18 2:[address] CM met with patient, she is alone in the room. States she lives with her cousin. States her PCP is Drew Edwards. States she wears oxygen at all times at 2L NC. States she also has a nebulizer. States her [employer] company is [employer]. States she uses a walking stick for ambulation, otherwise is independent with all ADL's and AIDL's. States she does use the [employer] bus for transportation. She agrees to [facility]entiary therapy if needed for rehab and GEOVANNY for [facility] signed in [place]. CM will continue to follow and assist with discharge planning/needs. DCP- Discharge Planning Updated by [email or web address]: Arleth Coyle on 08/25/18 5:[address] Patient Name: FARHAT LONG Admission Status: ER Accout number: [id number] Admission Date: 08-22-2018 : 1955 Admission Diagnosis:ACUTE RESPIRATORY FAILURE WITH HYPOXIA Attending: CHRISTIANO JONES Current LOS: 3 Anticipated DC Date: Planned Disposition: Primary Insurance: [facility] MEDICARE SOLUTIONS Discharge Planning Comments: CM attempted to meet with patient regarding discharge planning/ needs. Patient is currently sedated on ventilator. CM contacted Anson Long (brother) [phone]. Anson stated that the patient lived with a cousin. He stated that he thought patient might have a cane and home 02 but denies any services. Family uncertain of discharge disposition or needs at this time. CM will continue to follow and assist as needed with discharge planning / needs. Leather Belt Loop Cutter: Arleth Coyle DCPIA - Discharge Planning Initial Assessment Updated by [email or web address]: Arelth Coyle on 08/25/18 6:08 pm * Is the patient Alert and Oriented? Yes * How many steps to enter\exit or inside your home? * PCP Jerry - [place] ?? * [facility]acy [facility] - [place] * Preadmission Environment Home with Family * ADLs Independent * Other Equipment possibly cane and 02?? * List name and contact numbers for known caregivers / representatives who currently or will assist patient after discharge: Anson Long - brother- [phone] * Verbal permission to speak to the caregivers and representatives has been obtained from the patient. N/A * Community resources currently utilized None * Additional services required to return to the preadmission environment? No * Can the patient safely return to the preadmission environment? Yes * Has this patient been hospitalized within the prior 30 days at any hospital? No External Providers External Provider: [facility] Next Contact Date: Service Request Date: Service Type: Resolution: Reviewer: Comments: Coverage Notice Reviewer: [email or web address] Rubén Estrada Notice Issued Date-Time: 09/04/2018 15:43 Notice Type: IM Discharge Notice Notice Delivered To: Patient Relationship to Patient: Self Transport Technician Name: Delivery Method: HAND - Hand Delivered Isabelle Days: Prior Verbal Notification: Recipient Understood Notice: Yes Recipient Signature: Yes Med Rec Note Co-signed by Attending: Coverage Notice Comment: IMM EXPLAINED, SIGNED, GIVEN, COPY PLACED IN MR Last DP export: 09/04/18 9:15 a Patient Name: FARHAT LONG Page 05712 at 1547 All edits/amendments must be made on the electronic document DICTATION DATE: 09/04/181546 COMMODITY DIRECTOR: KELY 09/04/181546 RPT#: [id number] DC DATE: STATUS: ADM IN [facility] [address] [place] [address] END OF REPORT
--- NOTE | 2018-09-04 16:19 | MORECARE ---
CASE MANAGEMENT DISCHARGE SUMMARY PATIENT: FARHAT LONG UNIT: [id number] ADM DATE: 08/22/18 AGE: 62 : 57 SEX: F ROOM/BED: D.2222 AUTHOR: TUSHAR,DOC PHYSICIAN: REFERRING PHYSICIAN: CHRISTIANO JONES MD DATE OF SERVICE: 09/04/18 Discharge Plan Patient Name: FARHAT LONG Facility: [facility]:[place] : 1955 Planned Disposition: Anticipated Discharge Date: Discharge Date: Expected LOS: Initial Reviewer: [email or web address] Initial Review Date: 08/25/2018 Generated: 09/04/18 5:18 pm Comments DCP- Discharge Planning Updated by [id number]: Iram Estrada on 09/04/18 3:[address] Patient states she wants to go home with home health. States she has [facility]. I called and spoke to Sandra at [facility] ([place] office), she is current with their services and will accept her back. I faxed clinical to [phone]. They will see her Friday. Carpet Finishing Supervisor is calling her brother for picker and sorter load and unload and reminding him to bring her portable oxygen. Patient states she has oxygen and portable oxygen from [facility] in [place], [facility] she also has a nebulizer. I called Ivania at [facility] and informed her that she was going home with home health. CM will continue to follow and assist with discharge planning/needs. DCP- Discharge Planning Updated by [id number]: Iram Estrada on 09/04/18 9:[address] I called Ivania at [facility] in [place] and referral given. She is a managed Medicare and will need preauthorization for admission to skilled facility. Clinical faxed. CM will continue to follow and assist with discharge planning/needs. [facility] DCP- Discharge Planning Updated by [id number]: Iram Estrada on 09/03/18 2:[address] CM met with patient, she is alone in the room. States she lives with her cousin. States her PCP is Drew Edwards. States she wears oxygen at all times at 2L [place]. States she also has a nebulizer. States her DME company is [employer]. States she uses a walking stick for ambulation, otherwise is independent with all ADL's and AIDL's. States she does use the [employer] bus for transportation. She agrees to intermediate therapy if needed for rehab and GEOVANNY for [facility] signed in [place]. CM will continue to follow and assist with discharge planning/needs. DCP- Discharge Planning Updated by [id number]: Arleth Coyle on 08/25/18 5:[address] Patient Name: FARHAT LONG Admission Status: ER Accout number: [id number] Admission Date: 08-22-2018 : 1955 Admission Diagnosis:ACUTE RESPIRATORY FAILURE WITH HYPOXIA Attending: CHRSITIANO JONES Current LOS: 3 Anticipated DC Date: Planned Disposition: Primary Insurance: [facility] MEDICARE SOLUTIONS Discharge Planning Comments: CM attempted to meet with patient regarding discharge planning/ needs. Patient is currently sedated on ventilator. CM contacted Anson Long (brother) [phone]. Anson stated that the patient lived with a cousin. He stated that he thought patient might have a cane and home 02 but denies any services. Family uncertain of discharge disposition or needs at this time. CM will continue to follow and assist as needed with discharge planning / needs. Body Specialist: Arleth Coyle DCPIA - Discharge Planning Initial Assessment Updated by [id number]: Arleth Coyle on 08/25/18 6:08 pm * Is the patient Alert and Oriented? Yes * How many steps to enter\exit or inside your home? * PCP Jerry Granger ?? * Pharmacy [facility] - [place] * Preadmission Environment Home with Family * ADLs Independent * Other Equipment possibly cane and 02?? * List name and contact numbers for known caregivers / representatives who currently or will assist patient after discharge: Anson Long - brother- [phone] * Verbal permission to speak to the caregivers and representatives has been obtained from the patient. N/A * Community resources currently utilized None * Additional services required to return to the preadmission environment? No * Can the patient safely return to the preadmission environment? Yes * Has this patient been hospitalized within the prior 30 days at any hospital? No Coverage Notice Reviewer: [id number] Rubén Iram Crouchchanel Notice Issued Date-Time: 09/04/2018 15:43 Notice Type: IM Discharge Notice Notice Delivered To: Patient Relationship to Patient: Self Network Mgr Name: Delivery Method: HAND - Hand Delivered Isabelle Days: Prior Verbal Notification: Recipient Understood Notice: Yes Recipient Signature: Yes Med Rec Note Co-signed by Attending: Coverage Notice Comment: IMM EXPLAINED, SIGNED, GIVEN, COPY PLACED IN MR Last DP export: 09/04/18 2:47 p Patient Name: FARHAT LONG Page [id number] at 1619 All edits/amendments must be made on the electronic document DICTATION DATE: 09/04/181617 AIRPORT MAINTENANCE LABORER: KELY 09/04/181617 RPT#: [id number] DC DATE: STATUS: ADM IN [facility] [address] [place] [address] END OF REPORT
[2018-09-04 17:48] VITALS: BP 109/59
--- NOTE | 2018-09-04 19:15 | NUR ---
RECIEVED CARE FROM DAY NURSE. LYING IN BED ON SIDE. REPORTS NO NEEDS AT THIS TIME. IV INFUSING PER ORDER TO LEFT HAND. CALL LIGHT AT SIDE.
[2018-09-04 20:00] VITALS: BP 110/59
[2018-09-05] VITALS: BP 112/69
[2018-09-05 04:00] VITALS: BP 123/67
[2018-09-05 07:03] LABS: CALC OSMOLALITY 270 mosm/kg (275-300); CALCIUM 8.2 mg/dL (8.5-10.1); CARBON DIOXIDE 34.5 mmol/L (21.0-32.0); CHLORIDE - SERUM 102 mmol/L (98-107); CREATININE - SERUM 0.6 mg/dL (0.6-1.3); MAGNESIUM - SERUM 1.6 mg/dL (1.8-2.4); POTASSIUM - SERUM 4.6 mmol/L (3.5-5.1); SODIUM 137 mmol/L (136-145); UREA NITROGEN 11 mg/dL (7-18); eGFR NON AFRICAN AMERICAN > 90 mL/min (90-120)
[2018-09-05 07:07] LABS: GLUCOSE 69 mg/dL (74-106)
[2018-09-05 07:21] LABS: BASOPHILS 0.3 % (0-2); EOSINOPHILS 0.4 % (0-7); HEMATOCRIT 33.8 % (36.0-48.0); HEMOGLOBIN 9.7 g/dL (12-16); IMMATURE GRANULOCYTES 0.1 % (0-5); LYMPHOCYTES 30.8 % (15-50); MCH 23.3 pg (26.0-34.0); MCHC 28.7 g/dL (31.0-37.0); MEAN PLATELET VOLUME 10.4 fL (7.4-10.4); MONOCYTES 9.1 % (2-11); NEUTROPHILS 59.3 % (40-80); RBC 4.16 10x6/uL (4.00-5.40); RDW 22.8 % (11.5-14.5); WBC 6.9 10x3/uL (4.8-10.8)
[2018-09-05 07:22] LABS: MCV 81.3 fL (80.0-100.0); PLATELET COUNT 284 10x3/uL (130-400)
--- NOTE | 2018-09-05 07:49 | NUR ---
PT IS RESTING IN BED WITH EYES OPEN. RESPIRATIONS ARE EVEN AND UNLABORED. PT IS REPORTING NAUSEA BUT DENIES PAIN AT THIS TIME. WILL ADDRESS. SEE EMAR. O2 VIA [place] @ 3.5L. REYES CATHETER NOTED DRAINING FREELY WITH YELLOW URINE. WILL D/C REYES CATHETER. SCDS ARE NOT ON. BED IS IN THE LOWEST POSITION. CALL LIGHT AND BEDSIDE TABLE ARE WITHIN REACH. WILL CONT TO MONITOR.
--- NOTE | 2018-09-05 11:12 | NUR ---
PT IS AMBULATING TO BATHROOM WITHOUT ASSIST. PT WITH CLEAR YELLOW MODERATE VOID AMOUNT POST REYES CATHETER D/C. ALL DISCAHRGE PAPERWORK COVERED. ALL QUESTIONS ANSWERED. ALL DISCHARGE PAPERWORK SIGNED BY PT. PT REPORTS, "MY BROTHER IS SUPPOSED TO BE COMING HERE TO GET ME". WILL AWAIT FOR TRANSPORTATION HOME. WILL CONT TO MONITOR.
--- NOTE | 2018-09-05 14:01 | NUR ---
PIV REMOVED FROM LEFT FOREARM WITH CATHETER TIP INTACT. DRESSING APPLIED. PT BROTHER IS HERE FOR TRANSPORT HOME. WILL TRANSPORT PT OUT OF [facility] VIA WHEELCHAIR.
--- NOTE | 2018-09-05 14:08 | NUR ---
PT TRANSPORTED OUT OF ROOM VIA WHEELCHAIR FOR TRANSPORT HOME.
--- NOTE | 2018-09-09 16:50 | MORECARE ---
CASE MANAGEMENT DISCHARGE SUMMARY PATIENT: FARHAT LONG UNIT: [id number] ADM DATE: 08/22/18 AGE: 62 : 57 SEX: F ROOM/BED: D.2222 AUTHOR: TUSHAR,DOC PHYSICIAN: REFERRING PHYSICIAN: CHRISTIANO JONES MD DATE OF SERVICE: 09/09/18 Discharge Plan Patient Name: FARHAT LONG Facility: [facility]:[place] : 1955 Planned Disposition: Anticipated Discharge Date: Discharge Date: 09/05/2018 Expected LOS: 0 Initial Reviewer: [id number] Initial Review Date: 08/25/2018 Generated: 09/09/18 5:50 pm Comments DCP- Discharge Planning Updated by [id number]: Iram Estrada on 09/04/18 3:[address] Patient states she wants to go home with home health. States she has [facility]. I called and spoke to Sandra at [facility] ([place] office), she is current with their services and will accept her back. I faxed clinical to [phone]. They will see her Friday. Vision Rehabilitation Therapist is calling her brother for garbage pick up worker and reminding him to bring her portable oxygen. Patient states she has oxygen and portable oxygen from [facility] in [place], [facility] she also has a nebulizer. I called Ivania at [facility] and informed her that she was going home with home health. CM will continue to follow and assist with discharge planning/needs. DCP- Discharge Planning Updated by [id number]: Iram Natalie on 09/04/18 9:[address] I called Ivania at [facility] in [place] and referral given. She is a managed Medicare and will need preauthorization for admission to skilled facility. Clinical faxed. CM will continue to follow and assist with discharge planning/needs. [facility] DCP- Discharge Planning Updated by [id number]: Iram Crouchchanel on 09/03/18 2:[address] CM met with patient, she is alone in the room. States she lives with her cousin. States her PCP is Drew Edwards. States she wears oxygen at all times at 2L [place]. States she also has a nebulizer. States her DME company is [employer]. States she uses a walking stick for ambulation, otherwise is independent with all ADL's and AIDL's. States she does use the [employer] for transportation. She agrees to shelter therapy if needed for rehab and GEOVANNY for [facility] signed in [place]. CM will continue to follow and assist with discharge planning/needs. DCP- Discharge Planning Updated by [id number]: Arleth Coyle on 08/25/18 5:[address] Patient Name: FARHAT LONG Admission Status: ER Accout number: [id number] Admission Date: 08-22-2018 : 1955 Admission Diagnosis:ACUTE RESPIRATORY FAILURE WITH HYPOXIA Attending: CHRISTIANO JONES Current LOS: 3 Anticipated DC Date: Planned Disposition: Primary Insurance: [facility] MEDICARE SOLUTIONS Discharge Planning Comments: CM attempted to meet with patient regarding discharge planning/ needs. Patient is currently sedated on ventilator. CM contacted Anson Long (brother) [phone]. Anson stated that the patient lived with a cousin. He stated that he thought patient might have a cane and home 02 but denies any services. Family uncertain of discharge disposition or needs at this time. CM will continue to follow and assist as needed with discharge planning / needs. Bioanalyst: Arleth Coyle DCPIA - Discharge Planning Initial Assessment Updated by [id number]: Arleth Coyle on 08/25/18 6:08 pm * Is the patient Alert and Oriented? Yes * How many steps to enter\exit or inside your home? * PCP Jerry - [place] ?? * Pharmacy [facility] - [place] * Preadmission Environment Home with Family * ADLs Independent * Other Equipment possibly cane and 02?? * List name and contact numbers for known caregivers / representatives who currently or will assist patient after discharge: Anson Long - brother- [phone] * Verbal permission to speak to the caregivers and representatives has been obtained from the patient. N/A * Community resources currently utilized None * Additional services required to return to the preadmission environment? No * Can the patient safely return to the preadmission environment? Yes * Has this patient been hospitalized within the prior 30 days at any hospital? No Coverage Notice Reviewer: [id number] Rubén Iram Crouchchanel Notice Issued Date-Time: 09/04/2018 15:43 Notice Type: IM Discharge Notice Notice Delivered To: Patient Relationship to Patient: Self Commissions Specialist Name: Delivery Method: HAND - Hand Delivered Isabelle Days: Prior Verbal Notification: Recipient Understood Notice: Yes Recipient Signature: Yes Med Rec Note Co-signed by Attending: Coverage Notice Comment: IMM EXPLAINED, SIGNED, GIVEN, COPY PLACED IN MR Last DP export: 09/04/18 3:19 p Patient Name: FARHAT LONG Page [id number] at 1650 All edits/amendments must be made on the electronic document DICTATION DATE: 09/09/181649 LIBERAL ARTS TEACHER: KELY 09/09/181649 RPT#: [id number] DC DATE:09/05/18 STATUS: DIS IN [facility] [address] [place] [address] END OF REPORT
== END 2018-09-05 14:17 | disposition home health service (06) | DRG 207 ==
LOC: D.ER 03:16 → D.ICU 03:38 → D.MS 09-02 16:33
PROVIDERS: Emergency Medicine; Family Medicine; Family Medicine Adult Medicine; Internal Medicine Pulmonary Disease; ADMIT Family Medicine
PROC: 5A1955Z Respiratory Ventilation, Greater than 96 Consecutive Hours (ICD-10-PCS; principal; 2018-08-22)
PROC: 0BH17EZ Insertion of Endotracheal Airway into Trachea, Via Natural or Artificial Opening (ICD-10-PCS; 2018-08-22)
DX: J96.01 Acute respiratory failure with hypoxia (principal); G92 Toxic encephalopathy; K72.00 Acute and subacute hepatic failure without coma; E43 Unspecified severe protein-calorie malnutrition; J18.9 Pneumonia, unspecified organism; Z68.1 Body mass index [BMI] 19.9 or less, adult; N17.9 Acute kidney failure, unspecified; J44.1 Chronic obstructive pulmonary disease with (acute) exacerbation; E87.2 Acidosis; J98.11 Atelectasis; J96.02 Acute respiratory failure with hypercapnia; F17.200 Nicotine dependence, unspecified, uncomplicated; F14.10 Cocaine abuse, uncomplicated; D50.9 Iron deficiency anemia, unspecified; E87.6 Hypokalemia; E87.5 Hyperkalemia; D69.6 Thrombocytopenia, unspecified